=== PATIENT | male | born 2000 | race Caucasian/White ===

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

== ENCOUNTER 2020-07-11 18:00 | Emergency (ER) | payer MEDICAID ==
[~2020-07-11] VITALS: Ht 172.7 cm; Wt 68.0 kg
[2020-07-11 18:04] VITALS: Ht 172.7 cm; Wt 68.0 kg
[2020-07-11 20:26] VITALS: BP 123/33
== END 2020-07-11 20:24 | disposition short-term general hospital (02) ==
LOC: ED 18:00
DX: S51.832A Puncture wound without foreign body of left forearm, initial encounter (principal); W34.09XA Accidental discharge from other specified firearms, initial encounter; Y93.89 Activity, other specified; Y92.89 Other specified places as the place of occurrence of the external cause; Y99.8 Other external cause status
CPT/HCPCS: J2270; Q0092